=== PATIENT | female | born 1990 | race American Indian/Alaskan Native ===

== ENCOUNTER 2021-12-21 14:55 | Inpatient (IN) | payer SELFPAY ==
[2021-12-21] MEDS ORDERED: fentaNYL 100 MCG/2 ML INJ ONE (15:07)
[2021-12-21] MEDS ORDERED: OXYTOCIN DRIP 30,000 MILLIUNITS/500 ML BAG IV ONE (15:07)
[2021-12-21] MEDS ORDERED: LIDOCAINE (2%) 20 MG/1 ML VIAL 20 ML MDV INFILTRATI ONE (15:07)
[2021-12-21] MEDS ORDERED: miSOPROStol 200 MCG TAB PR PRN (15:35)
[2021-12-21] MEDS ORDERED: LOPERAMIDE 2 MG CAP PO PRN (15:35)
[2021-12-21] MEDS ORDERED: OXYTOCIN 10 UNIT/1 ML INJ IM PRN (15:35)
[2021-12-21] MEDS ORDERED: OXYTOCIN DRIP 30 UNITS/500 ML BAG IV SCH (16:00)
--- NOTE | 2021-12-21 16:07 | History and Physical Report ---
History of Present Illness Date of examination: 12/21/21 Date of admission: 12/21/21 14:55 Chief complaint: baby delivered in car on the way to hospital History of present illness: at 38.3wks by pt report. care at [facility] in [place], [place]. Pt states that she started feeling painful contractions earlier today and she could not reach her designated hospital for delivery, because she felt pressure as she was driven by her sister in the front seat as a passenger and the baby delivered. Pt SROM in her car as well with ctx and no heavy vag bleed and the placenta was still in place. Past History Past Medical History: no pertinent history Past Surgical History: no surgical history Family/Genetic History: none Social history: no significant social history - Obstetrical History Expected Date of Delivery: 01/01/22 Actual Gestation: 38 Week(s) 3 Day(s) : 2 Hx # Term Pregnancies: 1 Number of Living Children: 1 Medications and Allergies Allergies Allergy/AdvReac Type Severity Reaction Status Date / Time No Known Allergies Allergy Unverified 12/21/21 15:45 Active Meds: Active Medications Acetaminophen (Acetaminophen 325 Mg Tab) 650 mg PO Q4H PRN PRN Reason: Pain, Mild (1-3) Carboprost Tromethamine (Carboprost Tromethamine 250 Mcg/1 Ml Inj) 250 mcg IM ONCE PRN PRN Reason: Uterine Bleeding Ephedrine Sulfate (Ephedrine Sulfate 50 Mg/1 Ml Inj) 10 mg IV Q2M PRN PRN Reason: Hypotension Fentanyl (Fentanyl 100 Mcg/2 Ml Inj) 100 mcg IV Q2H PRN PRN Reason: Pain,Severe (7-10) LABOR PAIN Lactated Ringer's (Lactated Ringers) 1,000 mls @ 125 mls/hr IV DIRECT CROW Oxytocin/Sodium Chloride (Pitocin/Ns 30 Unit/500ml) 30 units in 500 mls @ 40 mls/hr IV TITR CROW; Protocol Cefazolin Sodium 2 gm/ Sodium (Chloride) 100 mls @ 200 mls/hr IV ONCE ONE; Protocol Stop: 12/21/21 16:04 Lidocaine (Lidocaine (2%) 20 Mg/1 Ml Vial 20 Ml Mdv) 20 ml INFILTRATI ONCE ONE Stop: 12/21/21 15:36 Loperamide HCl (Loperamide 2 Mg Cap) 2 mg PO ONCE PRN PRN Reason: give with Hemabate Methylergonovine Maleate (Methylergonovine Maleate 0.2 Mg/Ml Vial) 0.2 mg IM ONCE PRN PRN Reason: Uterine Bleeding Mineral Oil (Mineral Oil 30 Ml Oral Liqd) 30 ml PO QHS PRN PRN Reason: Constipation Misoprostol (Misoprostol 200 Mcg Tab) 800 mcg WV ONCE PRN PRN Reason: Uterine Bleeding Nalbuphine HCl (Nalbuphine 10 Mg/1 Ml Inj) 10 mg IV Q2H PRN PRN Reason: Pain, Moderate (4-6) Oxytocin (Oxytocin 10 Unit/1 Ml Inj) 10 unit IM ONCE PRN PRN Reason: Uterine Bleeding Terbutaline Sulfate (Terbutaline 1 Mg/1 Ml Inj) 0.25 mg SUB-Q ONCE PRN PRN Reason: Hyperstimulation/Hypertonicity Review of Systems All systems: negative (delivered baby at home) - Vital Signs Vital signs: Vital Signs Pulse Pulse Ox 95 H 99 12/21/21 15:01 12/21/21 15:01 Temp Pulse Resp BP Pulse Ox 86 137/80 100 12/21/21 15:56 12/21/21 15:35 12/21/21 15:56 - Physical Exam Breasts: Positive: deferred Cardiovascular: Regular rate Lungs: Positive: Normal air movement Abdomen: Positive: soft Cervix: Positive: other (no lacerations) Uterus: Positive: enlarged - Obstetrical Cervical Dilatation: 10 Results All other labs normal. Assessment and Plan of term in car, with placenta still in place, GBS+ 1. Admit to labor and delivery for delivery of placenta and repair of vaginal lacerations seen 2. Obtain records 3. Will give Ancef x1 dose now Plan for care discussed and pt agrees
--- NOTE | 2021-12-21 16:26 | Procedure Note ---
OB Delivery Note - Delivery Date of Delivery: 12/21/21 Surgeon: DANNIELLE NEAL Estimated blood loss: 200cc - Vaginal Delivery presentation: vertex (per pt report) Intrapartum events: precipitous labor- <3hr (per pt report) Delivery monitor: none Route of delivery: (per pt report in her car on the way to hospital) Delivery placenta: expressed Delivery cord: 3 umbilical vessels Delivery laceration: 1st degree (right periurethral and left labial), 2nd degree (perineum) Delivery repair: chromic Anesthesia: local (lidocaine 2% plain) Delivery comments: Precipitous delivery in car on the way to the hospital pt reports. I was called by charge nurse to deliver placenta. I examined the patient and noticed she sustained 2nd perineal laceration, right 1st degree periurethral laceration and 2nd degree perineal laceration. The placenta was still attached and therefore was expressed by gently tugging on the cord without difficulty and placenta noted to be complete with 3vessel cord. While doing repair to lacerations, moderate amount of soft brown stool noted at the anus with possible contamination to wound. Repair done with local lidocaine 2% and 2-0 chromic running locked suture then subcutaneously on the skin with excellent hemostasis. Will give pt ancef x1 dose for possible contamination from stool and to enhance wound healing. The left labia 1st degree laceration was repaired with interrupted figure of 8 x1 sutue with excellent hemostasis. The right periurethral laceration was actively bleeding and same repaired with interrupted 2-0 chromic running locked suture with excellent hemostasis. The cervix visualized and no laceration seen, small amount of membranes removed with ring forceps. Bimanual massage done and pt given IV pitocin and fundus was firm. No APGARS done since pt arrived after 5mins. Baby evaluated by VALERIA nurse and doing well. Mom stable and also doing well. Will transfer to mother baby after recovery period. - A Gender: Female (wt 2830g)
[2021-12-21] MEDS ORDERED: TERBUTALINE 1 MG/1 ML INJ SUB-Q PRN (17:00)
[2021-12-21] MEDS ORDERED: NalbUPHINE 10 MG/1 ML INJ IV PRN (17:00)
[2021-12-21] MEDS ORDERED: LACTATED RINGERS 1,000 ML IV SCH (17:00)
[2021-12-21] MEDS ORDERED: fentaNYL 100 MCG/2 ML INJ IV PRN (17:00)
[2021-12-21] MEDS ORDERED: METHYLERGONOVINE MALEATE 0.2 MG/ML VIAL IM PRN (17:00)
[2021-12-21] MEDS ORDERED: ePHEDrine SULFATE 50 MG/1 ML INJ IV PRN (17:00)
[2021-12-21] MEDS ORDERED: LIDOCAINE (2%) 20 MG/1 ML VIAL 20 ML MDV INFILTRATI NR (17:00)
[2021-12-21 17:31] LABS: Hematocrit 38.2 % (30.3-42.9); Hemoglobin 12.4 gm/dl (10.1-14.3); Mean Corpuscular HGB Conc 32 % (30-34); Mean Corpuscular Volume 85 fl (79-97); Platelet Count 238 K/mm3 (140-440); Red Blood Count 4.51 M/mm3 (3.65-5.03); Red Cell Distribution Width 14.6 % (13.2-15.2)
[2021-12-21] MEDS ORDERED: PROMETHAZINE 25 MG TAB PO PRN (17:34)
[2021-12-21] MEDS ORDERED: LANOLIN/ZINC/DIMETHICONE (LANSINOH) 7 GM TP PRN (17:34)
[2021-12-21] MEDS ORDERED: oxyCODONE /ACETAMINOPHEN 5-325MG TAB PO PRN (17:34)
[2021-12-21] MEDS ORDERED: diphenhydrAMINE 25 MG CAP PO PRN (17:34)
[2021-12-21] MEDS ORDERED: ONDANSETRON 4 MG/2 ML INJ IV PRN (17:34)
[2021-12-21] MEDS ORDERED: PROMETHAZINE 25 MG RECT SUPP PR PRN (17:34)
[2021-12-21] MEDS ORDERED: ACETAMINOPHEN 325 MG TAB PO PRN ×2 (17:34→18:00)
[2021-12-21] MEDS ORDERED: DOCUSATE SODIUM 100 MG CAP PO PRN (17:34)
[2021-12-21] MEDS ORDERED: MAGNESIUM HYDROXIDE (MOM) ORAL LIQD UDC PO PRN (17:34)
[2021-12-21] MEDS: IBUPROFEN 600 MG TAB PO SCH (17:55)
[2021-12-21] MEDS: WITCH HAZEL/ GLYCERIN PAD TP PRN (17:55)
[2021-12-21] MEDS ORDERED: CARBOPROST TROMETHAMINE 250 MCG/1 ML INJ IM PRN (18:00)
[2021-12-21] MEDS ORDERED: MINERAL OIL 30 ML ORAL LIQD PO PRN (22:00)
[2021-12-22] MEDS: IBUPROFEN 600 MG TAB PO SCH ×5 (00:03→23:45)
[2021-12-22 05:35] LABS: Hematocrit 35.8 % (30.3-42.9); Hemoglobin 11.5 gm/dl (10.1-14.3)
--- NOTE | 2021-12-22 08:34 | Progress Note ---
Assessment and Plan A: S/P P: D/C home tomm if stable Subjective - Subjective Date of service: 12/22/21 Principal diagnosis: s/p Patient reports: appetite normal, voiding normally, pain well controlled, ambulating normally [place]: doing well, bottle feeding Objective - Vital Signs Latest vital signs: Vital Signs Temp Pulse Resp BP BP Pulse Ox Pulse Ox 12/22/21 07:29 98.2 F 92 H 18 106/51 99 12/22/21 04:30 98.4 F 75 18 114/78 12/22/21 00:41 98.5 F 91 H 18 125/61 98 12/21/21 21:21 98.0 F 107 H 18 129/67 97 12/21/21 19:30 100 12/21/21 17:41 98.4 F 89 19 127/74 99 12/21/21 17:38 99 12/21/21 16:21 93 H 99 12/21/21 16:16 94 H 99 12/21/21 16:11 78 99 12/21/21 16:06 80 99 12/21/21 16:01 101 H 98 12/21/21 15:56 86 100 12/21/21 15:51 96 H 99 12/21/21 15:46 89 98 12/21/21 15:41 92 H 100 12/21/21 15:36 86 99 12/21/21 15:35 89 137/80 12/21/21 15:31 91 H 99 12/21/21 15:26 89 100 12/21/21 15:21 100 H 100 12/21/21 15:16 93 H 99 12/21/21 15:11 88 100 12/21/21 15:06 89 100 12/21/21 15:01 95 H 99 Intake and Output 12/21/21 12/22/21 12/22/21 22:59 06:59 14:59 Intake Total 200 200 Output Total 400 300 Balance -200 -100 Intake: Oral 200 200 Output: Urine 400 300 Void 400 300 Other: Total, Intake Amount 200 200 Total, Output Amount 400 300 Weight 537 lb 14.846 oz 244 lb Estimated Blood Loss 200 - Exam Breasts: Present: normal Abdomen: Present: normal appearance, soft, normal bowel sounds Vulva: both: normal Uterus: Present: normal, firm, fundal height below umbilicus Extremities: Present: normal - Labs Labs: Abnormal lab results 12/21/21 Range/Units 17:21 WBC 15.3 H (4.5-11.0) K/mm3 MCH 27 L (28-32) pg
--- NOTE | 2021-12-22 08:38 | Discharge Summary ---
Providers - Providers Date of Admission: 12/21/21 14:55 Date of discharge: 12/23/21 Attending physician: DANNIELLE NEAL Primary care physician: BOBBIN CLEANER Hospitalization Reason for admission: other (home delivery) Episiotomy: none Laceration: 2nd degree Incision: normal, intact Other procedures: none complications: none Discharge diagnosis: IUP at term delivered [place] baby: female Hospital course: Pt was admitted to [facility] after delivering a viable female infant in her car on the way here. She had no pp complications. See h&p, delivery summary, and pp notes. Condition at discharge: Stable Disposition: HOME / SELF CARE / HOMELESS Plan - Discharge Medications Prescriptions: Ibuprofen [Motrin 600 MG tab] 600 mg PO Q6H PRN #30 tablet PRN Reason: Menstrual Cramps - Provider Discharge Summary Activity: routine, no sex for 6 weeks, no heavy lifting 4 weeks, no strenuous exercise Diet: routine Instructions: routine Additional instructions: [] Smoking cessation referral if applicable(refer to patient education folder for contact #) [] Refer to [facility] Booklet Call your doctor immediately for: * Fever > 100.5 * Heavy vaginal bleeding ( >1 pad per hour) * Severe persistent headache * Shortness of breath * Reddened, hot, painful area to leg or breast * Drainage or odor from incision. * Keep incision clean and dry at all times and follow doctor's instructions regarding bathing/showering - Follow up plan Follow up: PRIMARY CAREMD [Primary Care Provider] - 6 Weeks
[2021-12-22] MEDS: PRENATAL VIT27-FE FUMARATE-FOLIC ACID VIT TAB PO SCH (10:04)
[2021-12-23] MEDS: WITCH HAZEL/ GLYCERIN PAD TP PRN ×2 (00:04→14:23)
[2021-12-23 05:39] LABS: Basophils # (Auto) 0.1 K/mm3 (0.0-0.1); Basophils % (Auto) 0.5 % (0.0-1.8); Eosinophils # (Auto) 0.1 K/mm3 (0.0-0.4); Eosinophils % (Auto) 1.1 % (0.0-4.3); Hematocrit 36.8 % (30.3-42.9); Hemoglobin 11.7 gm/dl (10.1-14.3); Lymphocytes % (Auto) 27.7 % (13.4-35.0); Mean Corpuscular HGB Conc 32 % (30-34); Mean Corpuscular Volume 84 fl (79-97); Monocytes # (Auto) 0.7 K/mm3 (0.0-0.8); Monocytes % (Auto) 6.1 % (0.0-7.3); Platelet Count 247 K/mm3 (140-440); Red Blood Count 4.39 M/mm3 (3.65-5.03)
[2021-12-23] MEDS: IBUPROFEN 600 MG TAB PO SCH ×2 (06:20→11:05)
[2021-12-23] MEDS: PRENATAL VIT27-FE FUMARATE-FOLIC ACID VIT TAB PO SCH (11:05)
[2021-12-23 12:57] VITALS: BP 111/67
== END 2021-12-23 14:46 | disposition home or self-care (01) | DRG 769 ==
LOC: LD 14:55 → OB 17:12
PROVIDERS: ADMIT Obstetrics & Gynecology; ATTEND Obstetrics & Gynecology
PROC: 10E0XZZ Delivery of Products of Conception, External Approach (ICD-10-PCS; principal; 2021-12-21)
PROC: 0KQM0ZZ Repair Perineum Muscle, Open Approach (ICD-10-PCS; 2021-12-21)
DX: Z39.0 Encounter for care and examination of mother immediately after delivery (principal); Z20.822 Contact with and (suspected) exposure to COVID-19; O70.1 Second degree perineal laceration during delivery
CPT/HCPCS: 36415; 85014; 85018; 85025; 85027; 86592; 86850; 86900; 86901; 99211; G0378; J3490; G0463; J0690; J3010; J7120; U0003